=== PATIENT | male | born 1995 | race Two or more races ===

== ENCOUNTER 2016-12-16 19:51 | Emergency (ER) | payer SELFPAY ==
[~2016-12-16] VITALS: Ht 188 cm; Wt 85.6 kg
[2016-12-16] MEDS ORDERED: DIPH,PERTUSS(ACELL),TET VAC/PF 0.5 ML IM-VACC ONE ×2 (19:59→20:00)
[2016-12-16 20:25] VITALS: BP 122/74
== END 2016-12-16 20:27 | disposition home or self-care (01) ==
LOC: ED 20:21
DX: S61.210A Laceration without foreign body of right index finger without damage to nail, initial encounter (principal); X58.XXXA Exposure to other specified factors, initial encounter; Y93.89 Activity, other specified; Y99.8 Other external cause status; Y92.009 Unspecified place in unspecified non-institutional (private) residence as the place of occurrence of the external cause
CPT/HCPCS: 29130; 90471; 90715